=== PATIENT | female | born 1945 | race Two or more races ===

== ENCOUNTER 2023-11-10 09:31 | Inpatient (IN) | payer MEDICARE, MEDICAID ==
[~2023-11-10] VITALS: Ht 165.1 cm; Wt 65.0 kg
[2023-11-10 10:17] LABS: Basophils # (auto) 0.1 10 ^3/uL (0-0.2); Eosinophils # (auto) 0.2 10 ^3/uL (0-0.8); Eosinophils % (auto) 2.7 % (0.0-7.0); Hematocrit 43.3 % (36.0-46.0); Hemoglobin 13.9 g/dL (12.2-16.2); Lymphocytes # (auto) 1.7 10 ^3/uL (0.4-5.4); Lymphocytes % (auto) 22.3 % (10.0-50.0); Mean Corpuscular Hemoglobin 28.8 pg (28.0-32.0); Mean Corpuscular Hgb Conc. 32.2 g/dL (32.0-36.0); Mean Corpuscular Volume 89.5 fL (80.0-100.0); Monocytes # (auto) 0.5 10 ^3/uL (0-1.3); Monocytes % (auto) 6.4 % (0.0-12.0); Neutrophils # (auto) 5.2 10 ^3/uL (1.6-8.6); Neutrophils % (auto) 67.6 % (37.0-80.0); Nucleated Red Blood Cells % 0.1 %; Red Blood Cells 4.83 10^6/uL (4.0-5.20); White Blood Cell 7.6 10^3/uL (4.4-10.8)
[2023-11-10 10:40] VITALS: RESP 16; O2SAT 99
[2023-11-10 10:40] LABS: Albumin 4.3 g/dL (3.2-4.8); Alkaline Phosphatase 47 U/L (46-116); Anion Gap 8 (5-15); Aspartate Aminotransferase 13 U/L (13-40); BUN/Creatinine Ratio 10.6 (10.0-20.0); Bilirubin, Total 0.7 mg/dL (0.2-1.0); Blood Urea Nitrogen 14 mg/dL (9-23); Calcium 10.2 mg/dL (8.5-10.1); Carbon Dioxide 19 mmol/L (20-30); Chloride 111 mmol/L (98-107); Glucose 111 mg/dL (74-106); Potassium 3.8 mmol/L (3.5-5.1); Sodium 138 mmol/L (136-145); Total Protein 7.5 g/dL (5.7-8.2)
[2023-11-10 10:59] LABS: Alanine Aminotransferase < 9 U/L (7-40)
[2023-11-10] MEDS: cloNIDine HCL 0.1 MG TAB PO ONE (13:28)
[2023-11-10] MEDS ORDERED: AMLO-297 PO (16:36)
[2023-11-10] MEDS ORDERED: APIX5TAB PO (16:36)
[2023-11-10] MEDS ORDERED: MET50T PO (16:36)
[2023-11-10] MEDS ORDERED: ATOR40TA52 PO (16:43)
[2023-11-10] MEDS: PANTOPRAZOLE 40 MG/10 ML VIAL INJ IV ONE (16:45)
[2023-11-10] MEDS: SOD CHL 0.45% 1,000 ML IV SCH (16:45)
[2023-11-10] MEDS ORDERED: DEXTROSE (50%) 50ML SYRG IV PRN (16:45)
[2023-11-10 17:00] LABS: Triglycerides 104 mg/dL (< 150)
[2023-11-10] MEDS: InsuLIN REG 1unit/0.01ml Soln (100units/ml) SC SCH (17:00)
[2023-11-10] MEDS: ACCU-CHEK COMFORT CURVE STRIP VI SCH (17:00)
[2023-11-10 17:01] LABS: LDL Cholesterol 218 mg/dL (< 100)
[2023-11-10 17:02] LABS: Cholesterol 254 mg/dL (< 200); HDL Cholesterol 36 mg/dL (40-59)
[2023-11-10 20:00] VITALS: PULSE 55; RESP 17; O2SAT 97
[2023-11-10] MEDS: ATORVASTATIN 20 MG TAB PO SCH (21:35)
[2023-11-10] MEDS: METOPROLOL TARTRATE 50 MG TAB PO SCH (21:35)
[2023-11-10] MEDS: APIXABAN 5 MG TAB PO SCH (21:36)
[2023-11-11] VITALS (8 sets, daily range): BP systolic 135–198; BP diastolic 67–85; PULSE 58–86; RESP 14–20; TEMP 97.9–98.3; O2SAT 95–99
[2023-11-11 06:34] LABS: Basophils # (auto) 0.1 10 ^3/uL (0-0.2); Basophils % (auto) 0.8 % (0.0-2.0); Eosinophils # (auto) 0.2 10 ^3/uL (0-0.8); Eosinophils % (auto) 3.3 % (0.0-7.0); Hematocrit 35.2 % (36.0-46.0); Hemoglobin 11.7 g/dL (12.2-16.2); Lymphocytes # (auto) 1.9 10 ^3/uL (0.4-5.4); Lymphocytes % (auto) 28.9 % (10.0-50.0); Mean Corpuscular Hemoglobin 29.2 pg (28.0-32.0); Mean Corpuscular Hgb Conc. 33.3 g/dL (32.0-36.0); Mean Corpuscular Volume 87.9 fL (80.0-100.0); Monocytes # (auto) 0.5 10 ^3/uL (0-1.3); Monocytes % (auto) 7.8 % (0.0-12.0); Neutrophils % (auto) 59.2 % (37.0-80.0); Nucleated Red Blood Cells % 0.1 %; Red Cell Distribution Width 15.7 % (11.8-14.3); White Blood Cell 6.7 10^3/uL (4.4-10.8)
[2023-11-11 06:43] LABS: Alkaline Phosphatase 38 U/L (46-116); Anion Gap 6 (5-15); Aspartate Aminotransferase 13 U/L (13-40); BUN/Creatinine Ratio 12.3 (10.0-20.0); Blood Urea Nitrogen 16 mg/dL (9-23); Calcium 9.4 mg/dL (8.5-10.1); Carbon Dioxide 21 mmol/L (20-30); Chloride 110 mmol/L (98-107); Glucose 89 mg/dL (74-106); Potassium 4.3 mmol/L (3.5-5.1); Sodium 137 mmol/L (136-145)
[2023-11-11] MEDS: DOCUSATE SOD 100 MG CAP PO PRN (06:43)
[2023-11-11 06:44] LABS: Alanine Aminotransferase < 9 U/L (7-40); Albumin 3.6 g/dL (3.2-4.8)
[2023-11-11 06:45] LABS: Bilirubin, Total 0.7 mg/dL (0.2-1.0); Total Protein 6.1 g/dL (5.7-8.2)
[2023-11-11] MEDS: hydrALAZINE HCL 20 MG/ML VL IV PRN (06:49)
[2023-11-11] MEDS: PANTOPRAZOLE 40 MG/10 ML VIAL INJ IV SCH (09:44)
[2023-11-11] MEDS: VALSARTAN 80 MG TAB PO SCH (09:45)
[2023-11-11] MEDS: amLODIPine BESYLATE 5 MG TAB PO SCH (09:46)
[2023-11-11] MEDS: LACTULOSE 20Gm/30ML SOLN PO ONE ×2 (11:35→17:28)
[2023-11-11] MEDS: ASPirin 81 mg TAB PO ONE (11:35)
[2023-11-11] MEDS: cefTRIAXone 1GM/50ML D5W 50 ML IV ONE (11:36)
[2023-11-11] MEDS: metroNIDAZOLE 500MG/100ML 100 ML IV SCH ×2 (14:28→21:57)
[2023-11-11] MEDS: ONDANSETRON HCL 4 MG/2 ML VIAL IV PRN (17:29)
[2023-11-11] MEDS ORDERED: KETOROLAC TROMETH 30 MG/ML 1ML VIAL IV PRN (18:30)
[2023-11-12 00:59] VITALS: BP 145/82; PULSE 60; RESP 17; TEMP 98; O2SAT 97
[2023-11-12 05:00] VITALS: BP 150/71; PULSE 64; RESP 20; TEMP 98; O2SAT 99
[2023-11-12 07:04] LABS: Basophils # (auto) 0.1 10 ^3/uL (0-0.2); Basophils % (auto) 0.8 % (0.0-2.0); Eosinophils # (auto) 0.3 10 ^3/uL (0-0.8); Eosinophils % (auto) 3.5 % (0.0-7.0); Hemoglobin 13.2 g/dL (12.2-16.2); Lymphocytes % (auto) 12.7 % (10.0-50.0); Mean Corpuscular Hemoglobin 29.1 pg (28.0-32.0); Mean Corpuscular Hgb Conc. 33.8 g/dL (32.0-36.0); Mean Corpuscular Volume 86.1 fL (80.0-100.0); Monocytes # (auto) 0.5 10 ^3/uL (0-1.3); Monocytes % (auto) 7.1 % (0.0-12.0); Neutrophils # (auto) 5.8 10 ^3/uL (1.6-8.6); Neutrophils % (auto) 75.9 % (37.0-80.0); Nucleated Red Blood Cells % 0.1 %; Red Blood Cells 4.52 10^6/uL (4.0-5.20); Red Cell Distribution Width 15.1 % (11.8-14.3); White Blood Cell 7.7 10^3/uL (4.4-10.8)
[2023-11-12 07:24] LABS: Anion Gap 10 (5-15); Calcium 9.7 mg/dL (8.5-10.1); Carbon Dioxide 19 mmol/L (20-30); Chloride 110 mmol/L (98-107); Potassium 3.9 mmol/L (3.5-5.1); Sodium 139 mmol/L (136-145)
[2023-11-12 07:30] LABS: BUN/Creatinine Ratio 10.4 (10.0-20.0); Blood Urea Nitrogen 12 mg/dL (9-23); Glucose 88 mg/dL (74-106)
[2023-11-12 07:33] LABS: Urine Bacteria FEW /hpf (None Seen); Urine Blood Negative /uL (Negative); Urine Clarity Clear (Clear); Urine Color Light-Yellow (Yellow); Urine Protein, UAD Negative (Negative); Urine Specific Gravity 1.008 (1.001-1.035); Urine Urobilinogen Normal (Negative); Urine WBC 1 /hpf (0 - 5)
[2023-11-12 08:00] VITALS: BP 138/78; PULSE 63; RESP 16; TEMP 98.1; O2SAT 99
[2023-11-12] MEDS: cefTRIAXone 1GM/50ML D5W 50 ML IV SCH (09:02)
[2023-11-12] MEDS: LACTULOSE 20Gm/30ML SOLN PO SCH (10:22)
[2023-11-12] MEDS: ASPirin 81 mg TAB PO SCH (10:23)
[2023-11-12] MEDS ORDERED: DOCU-265 PO (11:53)
[2023-11-12] MEDS ORDERED: VALS1TAB57 PO (11:53)
[2023-11-12] MEDS ORDERED: LACT10SO3 PO (11:53)
[2023-11-12] MEDS ORDERED: ASPI-325 PO (11:53)
[2023-11-12 12:00] VITALS: BP 184/91; PULSE 57; RESP 18; TEMP 97.9; O2SAT 99
[2023-11-12 16:00] VITALS: BP 139/60; PULSE 61; RESP 18; TEMP 98.5; O2SAT 99
[2023-11-12 16:09] VITALS: BP 139/60; PULSE 61; RESP 18; TEMP 36.6; O2SAT 99
== END 2023-11-12 18:04 | disposition home or self-care (01) | DRG 446 ==
LOC: ER 09:31 → EDBD 09:31 → TELE 16:36 → TELE-CENTR 21:14
PROVIDERS: ADMIT Internal Medicine Geriatric Medicine; ATTEND Internal Medicine Geriatric Medicine
DX: K80.20 Calculus of gallbladder without cholecystitis without obstruction (principal); K59.00 Constipation, unspecified; I10 Essential (primary) hypertension; I25.10 Atherosclerotic heart disease of native coronary artery without angina pectoris; E11.9 Type 2 diabetes mellitus without complications; I48.0 Paroxysmal atrial fibrillation; Z86.718 Personal history of other venous thrombosis and embolism; Z98.61 Coronary angioplasty status; Z86.73 Personal history of transient ischemic attack (TIA), and cerebral infarction without residual deficits; Z79.4 Long term (current) use of insulin
CPT/HCPCS: 36415; 74176; 78226; 80048; 80053; 80061; 81001; 82962; 83036; 85025; 93005; 93306; G0378; J2405; J3490

== ENCOUNTER 2024-08-03 20:16 | Emergency (ER) | payer MEDICARE, MEDICAID ==
[~2024-08-03] VITALS: Ht 157.5 cm; Wt 59.1 kg
[~2024-08-03 20:16] MED LIST: AMLO-297 PO; ASPI-325 PO; ATOR40TA52 PO; DOCU-265 PO; LACT10SO3 PO; MET50T PO; VALS1TAB57 PO
[2024-08-03 20:30] VITALS: BP 109/64; RESP 16; TEMP 99.4; O2SAT 100
[2024-08-03 21:20] VITALS: PULSE 94
--- NOTE | 2024-08-03 21:20 | ED.PDOC ---
History of Present Illness HPI Comments 78 y/o F is BIBA for c/o generalized weakness, congestion, abdominal pain, nausea, vomiting, poor appetite, constipation, and "dark" urine, today. Per EMS report, patient's daughter called in concerns regarding patients symptoms that has been progressively worsening for the past 4 days. Patient's abdominal pain is stated to have developed after eating "hot wings," earlier, today. She was also reported to have been diagnosed and placed on treatment regimen for a UTI a month ago. She denies any fever, chills, hematemesis, hematochezia, diarrhea, or other associated symptoms or modifiers at this time. Patient has a reported history of: asthma, appendectomy, CAD, CVDA, DM, cholelithiasis, HTN, VA s/p 4x PTCA , UTI's. Chief Complaint: Abdominal Pain Time Seen by MD: 20:19 Primary Care Provider: UNKNOWN Reviewed Notes: Nurses Notes, Salesperson Sewing Machines Notes, Medications, Allergies Allergies: Coded Allergies: Morphine (Verified Allergy, Severe, 11/10/23) Home Meds Active Scripts Valsartan (Valsartan) 80 Mg Tab, 160 MG PO DAILY for 90 Days, #180 TAB Prov:PHOEBE URBINA RESIDENT 11/12/23 Lactulose (Lactulose) 10 Gm/15 Ml Rosita, 30 ML PO DAILY for 90 Days, ML Prov:PHOEBE URBINA RESIDENT 11/12/23 Docusate Sodium (Docusate Sodium) 100 Mg Cap, 100 MG PO BIDPRN PRN for 30 Days, CAP Prov:PHOEBE URBINA RESIDENT 11/12/23 Aspirin (Aspirin Low Dose) 81 Mg Tab, 81 MG PO DAILY for 90 Days, #90 TAB Prov:PHOEBE URBINA RESIDENT 11/12/23 Reported Medications Atorvastatin Calcium (ATORVASTATIN CALCIUM) 40 Mg Tab, 1 TAB PO DAILY 11/10/23 Metoprolol Tartrate (LOPRESSOR TABLET) 50 Mg Tb, 1 TAB PO BID 11/10/23 Amlodipine Besylate-Valsartan (Amlodipine Besylate/Valsa 5-160 mg) 1 Tab Tab, 1 TAB PO DAILY 11/10/23 Information Source: Patient, Emergency Med Personnel Mode of Arrival: EMS Severity: Moderate Timing: Days Duration: Since onset Prehospital treatment: 12 Lead EKG, Accucheck, Flight Operations Coordinator Past Medical History PAST MEDICAL HISTORY: Asthma, CAD, CVA, DM, Gallstones, HTN, VA, UTI'S Past Medical History (Other): DVT Surgical History: Appendectomy, PTCA (4x) [employer] History: Denies all [employer] Hx Family History Family History: Unknown Social History Smoker: Non-Smoker Alcohol: Denies ETOH Use Drugs: Denies Drug Use Lives In: Home All Other Systems: Reviewed and Negative (Comprehensive systems review obtained and negative except for what is stated in the HPI.) Physical Exam General Appearance: No Apparent Distress, Normal HEENT: Normal ENT Inspection, Pharynx Normal, TMs Normal, Other (dry mucus membranes, otherwise normal HEENT exam ) Neck: Full Range of Motion, Non-Tender, Normal, Normal Inspection Respiratory: Chest Non-Tender, Lungs Clear, No Accessory Muscle Use, No Respiratory Distress, Normal Breath Sounds Cardiovascular: No Edema, No JVD, No Murmur, No Gallop, Normal Peripheral Pulses, Tachycardia, Other (regular rhythm ) Breast Exam: Deferred Gastrointestinal: No Organomegaly, Non Tender, No Pulsatile Mass, Normal Bowel Sounds, Soft Genitalia: Deferred Pelvic: Deferred Rectal: Deferred Extremities: No calf tenderness, Normal capillary refill, Normal inspection, Normal range of motion, Non-tender, No pedal edema Musculoskeletal : Apperance: Normal Neurologic: Alert, wrecking 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 Was a procedure done?: No EKG EKG : Pulse Rate (adult): 94 [place]: Normal Cardiac Rhythm: PAC's Block: None Hypertrophy: None ST: Normal Differential Dx Considerations may include: UTI, viral syndrome, URI, electrolyte imbalance, dehydration, gastritis, gastroenteritis, GERD, PUD, spoiled food, among others X-Ray, Labs, Meds, VS Vital Signs Date Time Temp Pulse Resp B/P (MAP) Pulse Ox O2 Delivery O2 Flow Rate FiO2 08/03/24 20:30 99.4 99 16 109/64 (79) 100 99.4 08/03/24 20:20 94 Time of 1ST Reevaluation: 20:49 Reevaluation 1ST: Unchanged Patient Education/Counseling: Diagnosis, Treatment Family Education/Counseling: No Family Present Additional Information Previous visit documents reviewed: November 10, 2023 encounter for accelerated hypertension The following tests were ordered, and results were reviewed by me: EKG, troponin, CXR, UA, CBC, BMP Additional Information was gathered from interviewing the following independent historians: EMS I reviewed and agreed with the following test results read by other providers: CXR I discussed treatment and results with medical personnel and: Patient Critical Care Note Critical Care Time?: No Stability Stability form required: No Heart Score Heart Score: Heart Score Response (Comments) Value History N/A 0 EKG N/A 0 Age N/A 0 Risk Factors N/A 0 Troponin N/A 0 Total 0 I personally scribed for KEYANNA TOUSSAINT MD ([email or web address]) on 08/03/24 at 21:20. Electronically submitted by John Quiles [email or web address]). KEYANNA TOUSSAINT MD Aug 03, 2024 21:20
--- NOTE | 2024-08-03 21:53 | DVH ---
CHEST RADIOGRAPH Indication: weakness Technique: Single frontal view of the chest was obtained COMPARISON: None FINDINGS: Lines and Tubes: None Lungs: Clear Pleura: No effusion. No pneumothorax. Cardiomediastinal contours: Unremarkable Bones: Unremarkable IMPRESSION: No acute abnormality demonstrated.
--- NOTE | 2024-08-04 08:29 | ECG ---
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
== END 2024-08-03 21:05 | disposition left against medical advice (07) ==
LOC: EDBD 20:16 → ER 20:16 → EDUNIT# 20:16 → ER 21:05
DX: R53.1 Weakness (principal); R09.81 Nasal congestion; R10.84 Generalized abdominal pain; R11.2 Nausea with vomiting, unspecified; K59.00 Constipation, unspecified; J45.909 Unspecified asthma, uncomplicated; I25.10 Atherosclerotic heart disease of native coronary artery without angina pectoris; E11.9 Type 2 diabetes mellitus without complications; I10 Essential (primary) hypertension; I25.2 Old myocardial infarction; Z86.718 Personal history of other venous thrombosis and embolism; Z90.49 Acquired absence of other specified parts of digestive tract; Z86.73 Personal history of transient ischemic attack (TIA), and cerebral infarction without residual deficits; Z79.899 Other long term (current) drug therapy; Z79.82 Long term (current) use of aspirin; Z79.891 Long term (current) use of opiate analgesic
CPT/HCPCS: 71045; 93005